=== PATIENT | female | born 1995 | race Native Hawaiian/Other Pacific Islander ===

== ENCOUNTER 2016-04-12 12:11 | Emergency (ER) | payer OTHER ==
[~2016-04-12] VITALS: Ht 160 cm; Wt 38.6 kg
[2016-04-12 12:45] VITALS: BP 109/72; TEMP 98.4
== END 2016-04-12 13:00 | disposition home or self-care (01) ==
LOC: ED 12:11
DX: N39.0 Urinary tract infection, site not specified (principal); N76.0 Acute vaginitis
CPT/HCPCS: 81000; 96372; 99281; J0696

== ENCOUNTER 2021-07-21 17:14 | Emergency (ER) | payer OTHER ==
[~2021-07-21] VITALS: Ht 160 cm; Wt 49.9 kg
[2021-07-21 17:24] VITALS: BP 116/96; TEMP 98.1
== END 2021-07-21 18:01 | disposition home or self-care (01) ==
LOC: ED 17:14
DX: M62.838 Other muscle spasm (principal)
CPT/HCPCS: 99282